=== PATIENT | female | born 1995 | race Caucasian/White ===

== ENCOUNTER 2022-02-10 00:03 | Inpatient (IN) | payer OTHER ==
[~2022-02-10] VITALS: Ht 172.7 cm; Wt 131.5 kg
[2022-02-10] MEDS ORDERED: ASPIRIN81 MG PO (03:34)
[2022-02-10] MEDS ORDERED: UNISOM25 MG PO (03:35)
[2022-02-10] MEDS ORDERED: EXPECTA PRENAT1 EACH PO (03:35)
[2022-02-10] MEDS ORDERED: FEROSUL325 MG PO (03:36)
--- NOTE | 2022-02-10 15:08 | PR ---
[facility] [address] [place], [place] [address] Signed Progress Notes IP Datetime Report Generated by CPRica: 02/10/2022 15:08 PROGRESS NOTES: [id number] Impression: Normal Progression of Labor; Reassuring Heart Rate Procedures: Sterile Vag Exam Plan: Anesthesia Consult VITAL SIGNS: [id number] Vital Signs: Reviewed VS Notable Details: No severe range BPs EXAM: [id number] Dilatation: 3.0 Effacement: 50 Station: -2 MEMBRANES: [id number] Comments: Pt seen and examined. Cervix ripe. Contractions painful and regular. Bloody show on SVE. Discussed AROM; pt quite painful w/ contractions and with cervical exam. Pt desires epidural prior to AROM. All questions answered. Plan AROM once comfortable. FETUS A: [id number] FHR Baseline: 145 Variability: Moderate 6-25bpm Accelerations: None Decelerations: Variable FHR Category: Category II Presentation: Vertex Comments on Fetus A: No evidence of featl metabolic acidosis FETUS B: [id number] Signing Physician: Trip Hargrove DO Copies: ~ *Electronically Signed* 02/10/22 1508 TRIP HARGROVE DO PATIENT NAME: ASHLEY HUTCHINS PROGRESS NOTE DATE OF : [birth year] PHYSICIAN: TRIP HARGROVE DO RPT #: [id number] REPORT IS CONFIDENTIAL AND NOT TO BE RELEASED WITHOUT AUTHORIZATION
--- NOTE | 2022-02-10 17:54 | NUR ---
02/10/22 1754 Jessi Harrison 1713 PATIENT INTO PACU. PATIENT IS ON 8 LITERS VIA MASK. BREATHING EQUAL AND UNLABORED. HEART RATE SINUS TACH. PATIENT IS DROWSY BUT DENIES ANY PAIN OR NAUSEA. IVF INFUSING. SPINAL CHECK COMPLETE. FUNDAL MASSAGE COMPLETE.
--- NOTE | 2022-02-11 08:00 | PR ---
[facility] [address] [facility] [address] [place], [place] [address] Signed PP Progress Notes Datetime Report Generated by CPN: 02/11/2022 08:00 SUBJECTIVE: [id number] Pain: Within Normal Limits Nausea/Vomiting: Denies Flatus: Yes Vital Signs: [id number] Vital Signs: Reviewed; Within Normal Limits EXAM: Ongoing Cardiovascular: Normal Respiratory: Normal Abdomen/Uterus: Normal Lochia: Normal Vulva/Perineum: Not Done Breasts: Not Done CVA Tenderness: Normal Extremities: Normal Incision: Normal Progress: Normal Exam Comments: Fundus firm U-2 nontender. IMPRESSION/PLAN/PROCEDURES: [id number] Impression: Normal Progression Plan: Continue Present Management Progress Notes: Pt seen and examined. Doing well. Ambulating and tolerating full diet. Pain and lochia minimal. Ceron cath in place with good output. No fever/chill or other concerns. Reviewed C/S in detail including indications, general anesthetic, intraoperative findings, and no obvious cause for bradycardia. All questions answered. Anticipate d/c home POD #3. Signing Physician: Trip Hargrove DO Copies: ~ *Electronically Signed* 02/11/22 0800 TRIP HARGROVE DO PATIENT NAME: ASHLEY HUTCHINS PROGRESS NOTE DATE OF : [birth year] PHYSICIAN: TRIP HARGROVE DO RPT #: [id number] REPORT IS CONFIDENTIAL AND NOT TO BE RELEASED WITHOUT AUTHORIZATION
--- NOTE | 2022-02-12 10:58 | PR ---
[facility] [address] [place], [place] [address] Signed PP Progress Notes Datetime Report Generated by CPN: 02/12/2022 10:58 SUBJECTIVE: [id number] Pain: Within Normal Limits Nausea/Vomiting: Denies Flatus: Yes Bowel Movement: No Vital Signs: [id number] Vital Signs: Reviewed Notable Details: Mildly elevated bps; pt started on procardia XL this AM EXAM: Met Cardiovascular: Normal Respiratory: Normal Abdomen/Uterus: Normal Lochia: Normal Vulva/Perineum: Not Done Breasts: Not Done CVA Tenderness: Normal Extremities: Normal Incision: Normal Progress: Normal Exam Comments: Fundus firm U-2 nontender. Incision healing well w/ meri in place IMPRESSION/PLAN/PROCEDURES: [id number] Impression: Normal Progression; Induced Hypertension Plan: Discharge Progress Notes: Pt seen and examined. Doing well. Ambulating, voiding, and tolerating full diet. Pain and lochia minimal. well. No fevers, chills, GUERRA, RUQ pain, visual changes, or other concerns. Desires d/c home. Reviewed d/c instructions in detail. S/P rhogam. Plan BP check and staple removal Wednesday. Signing Physician: Trip Hargrove DO Copies: ~ *Electronically Signed* 02/12/22 1058 TRIP HARGROVE DO PATIENT NAME: ASHLEY HUTCHINS PROGRESS NOTE DATE OF : [birth year] PHYSICIAN: TRIP HARGROVE DO RPT #: [id number] REPORT IS CONFIDENTIAL AND NOT TO BE RELEASED WITHOUT AUTHORIZATION
--- NOTE | 2022-02-25 00:41 | OR ---
[facility] [address] [place], [place] [address] Signed DATE OF OPERATION: 02/10/2022 SURGEON: Trip Hargrove DO PREOPERATIVE DIAGNOSES: 1. Intrauterine at 37 weeks gestation. 2. Gestational hypertension. 3. Non-reassuring heart tracing. 4. Morbid obesity. POSTOPERATIVE DIAGNOSES: 1. Intrauterine at 37 weeks gestation. 2. Gestational hypertension. 3. Non-reassuring heart tracing. 4. Morbid obesity. 5. Occiput posterior positioning. PROCEDURES PERFORMED: Primary low transverse delivery. TRAFFIC COURT MAGISTRATE: Veronica Vicente MD ANESTHESIA: General. ESTIMATED BLOOD LOSS: 700 mL. DRAINS: Ceron to gravity. FINDINGS: Delivery of viable male , 6 pounds 0 ounces, born in the OP position with no nuchal cord noted. Apgars 7 and 9. Unfortunately, cord gases were spilled, unable to be ascertained. Normal uterus, tubes, ovaries, and placenta. No obvious cause of bradycardia. INDICATIONS: Ms. Hutchins is a very pleasant 26-year-old, G1, P0 female with intrauterine at 37 Electronically Signed By: TRIP HARGROVE DO 02/25/22 0041 PATIENT NAME: ASHLEY HUTCHINS OPERATIVE REPORT DATE OF : [birth year] REPORT #: [id number] PHYSICIAN: TRIP HARGROVE DO PCP: TRIP HARGROVE DO REPORT IS CONFIDENTIAL AND NOT TO BE RELEASED WITHOUT AUTHORIZATION [facility] [address] [place], [place] [address] Signed weeks 3 days gestation, who presented to Labor and Delivery for medical induction of gestational hypertension. is complicated by morbid obesity and blood pressure is increasing without proteinuria. She is admitted for medical induction. Received dose of Cytotec. Cervix was noted to be ripe and the patient requested epidural. Her labor epidural was kindly administered by anesthesia. The patient then developed prolonged deceleration that was nonresponsive to intrauterine resuscitation or other interventions. Decision was made to quickly proceed with a stat section. Risks, benefits, and alternatives were discussed with the patient and partner. All questions answered. The patient understands and wished to proceed with the procedure. TECHNIQUE: The patient was taken to the operating room. Continued bradycardia was ascultated. A time out was performed to confirm correct patient, correct procedure. General anesthetic was adequately established as epidural was not adequate. Previous to administration of general anesthetic, the patient was prepped and draped in the supine position with a bump under the right hip and Ceron catheter was inserted. The patient received Ancef 3 g preoperatively per SCIP protocol. Once general anesthetic was established, a Pfannenstiel skin incision was made to 3 cm above the pubic symphysis and carried down to the fascia. The fascia was nicked in the midline. Fascial incision was extended bilaterally using curved Hunter scissors. Fascia was grasped with Marleen's, elevated, and the underlying rectus muscles were dissected off bluntly and sharply. The rectus muscles were divided in the midline. The peritoneum was entered bluntly. Peritoneal incision was extended bilaterally using blunt dissection. Noe self retractor was placed. The lower uterine segment identified and hysterotomy was performed using a surgical scalpel. Hysterotomy was extended bilaterally using blunt dissection. Clear amniotic fluid was noted. The surgeon's hand was placed in the uterine cavity. The head elevated in the abdomen, delivered with the assistance of fundal pressure in the OP position. The delivered easily without complications and was vigorous and cried upon delivery. Cord was doubly clamped and cut, and handed to the waiting pediatric team for further care. Cord blood was obtained for routine analysis and section of cord was handed off to perform blood gases. The placenta was manually expressed, intact with a centrally inserted 3-vessel cord. Pitocin was administered per protocol. The uterine cavity was cleared of any remaining products of conception or clot and bleeding was well controlled. Hysterotomy was repaired in 2 layers of 0 Monocryl, the 1st being a running locked layer and the 2nd being an imbricating layer in a vertical manner. The pelvis was irrigated and found to be hemostatic. Normal tubes and ovaries were appreciated. The Noe self retractor was removed and the pelvis was again noted to be hemostatic. Peritoneum was reapproximated using 2-0 Vicryl in a running nonlocked manner. Rectus muscles were made hemostatic with judicious use of Bovie electrocautery and plicated loosely in the midline using interrupted sutures of 0 Vicryl. The fascia was then reapproximated using 0 Vicryl in a running nonlocked manner. Subcu was made hemostatic Electronically Signed By: TRIP HARGROVE DO 02/25/22 0041 PATIENT NAME: ASHLEY HUTCHINS OPERATIVE REPORT DATE OF : [birth year] REPORT #: [id number] PHYSICIAN: TRIP HARGROVE DO PCP: TRIP HARGROVE DO REPORT IS CONFIDENTIAL AND NOT TO BE RELEASED WITHOUT AUTHORIZATION [address] [address] Signed with judicious use of Bovie electrocautery and irrigated and found to be hemostatic. Subcu was closed in layers using 3-0 Vicryl. Skin was reapproximated using surgical meri. The uterus was Crede'd for scant amount of blood and the patient was taken to PACU in good and stable condition. Sponge, needle, and instrument count was correct x2 at the end of the procedure. Dr. Vicente was present and participated in all portions of the procedure. Trip Hargrove DO JMaria ElenaW/DAVIDL /[id number] Copies: ~ Electronically Signed By: TRIP HARGROVE DO 02/25/22 0041 PATIENT NAME: ASHLEY HUTCHINS OPERATIVE REPORT DATE OF : [birth year] REPORT #: [id number] PHYSICIAN: TRIP HARGROVE DO PCP: TRIP HARGROVE DO REPORT IS CONFIDENTIAL AND NOT TO BE RELEASED WITHOUT AUTHORIZATION
== END 2022-02-12 13:25 | disposition home or self-care (01) | DRG 787 ==
LOC: FBC 00:03 → MS 02-11 22:47 → FBC 02-11 23:03
PROVIDERS: ADMIT Obstetrics & Gynecology; ATTEND Obstetrics & Gynecology
PROC: 3E0234Z Introduction of Serum, Toxoid and Vaccine into Muscle, Percutaneous Approach (ICD-10-PCS; 2022-02-10)
PROC: 3E0P7VZ Introduction of Hormone into Female Reproductive, Via Natural or Artificial Opening (ICD-10-PCS; 2022-02-10)
PROC: 10D00Z1 Extraction of Products of Conception, Low, Open Approach (ICD-10-PCS; principal; 2022-02-10 16:09)
DX: O13.4 Gestational [pregnancy-induced] hypertension without significant proteinuria, complicating childbirth (principal); D62 Acute posthemorrhagic anemia; Z37.0 Single live birth; O26.893 Other specified pregnancy related conditions, third trimester; Z67.11 Type A blood, Rh negative; O76 Abnormality in fetal heart rate and rhythm complicating labor and delivery; Z3A.37 37 weeks gestation of pregnancy; O99.03 Anemia complicating the puerperium
CPT/HCPCS: 01961; 36415; 80053; 82565; 82570; 82803; 83030; 83615; 84156; 84550; 85027; 86850; 86900; 86901; A9270; J0330; J0456; J0690; J1100; J1650; J1885; J2274; J2405; J2590; J2790; J2795; J3010; J7121